=== PATIENT | female | born 1995 | race Caucasian/White ===

== ENCOUNTER 2019-10-19 12:20 | Outpatient (CLI) | payer OTHER ==
--- NOTE | 2019-10-19 12:37 | RAD ---
Left elbow 4 views HISTORY: Elbow pain. FINDINGS: Radiocapitellar alignment is maintained. Joint spaces preserved. No acute fracture, disloca tion, or fluid distention of the joint capsule evident. IMPRESSION : Normal exam.
--- NOTE | 2019-10-19 13:55 | RAD ---
RIGHT ELBOW: 10/19/19 Four views. INDICATIONS: Right elbow pain. Slight irregularity is seen at the coronoid best appreciated in the lateral projection. This could po tentially represent old trauma. There is also hypertrophic prominence at the medial epicondyle of the distal humerus which is asymmetric when compared to the left elbow. This might also be result of katie or ligamentous trauma. There is no evidence of joint effusion. There is no evidence of acute fracture. IMPRESSION: Irregularity at the coronoid and hypertrophic change at the medial epicondyle of the distal humerus. Question old injury. There is no evidence of acute fracture. POS: [facility]
== END 2019-10-19 12:21 | disposition home or self-care (01) ==
LOC: BICRAD 12:20
PROVIDERS: ATTEND Family Medicine
DX: M25.521 Pain in right elbow (principal); M25.522 Pain in left elbow